=== PATIENT | male | born 1990 | race African-American/Black ===

== ENCOUNTER 2019-01-07 21:29 | Emergency (ER) | payer OTHER | END 2019-01-07 23:36 | disposition home or self-care (01) | LOC: JER 21:29 ==

== ENCOUNTER 2021-04-24 21:44 | Emergency (ER) | payer OTHER ==
[2021-04-24 22:00] VITALS: BP 127/72; PULSE 94; TEMP 98.2; BMI 38.6
== END 2021-04-24 22:50 | disposition home or self-care (01) ==
LOC: FER 21:44
DX: S63.91XA Sprain of unspecified part of right wrist and hand, initial encounter (principal); M25.512 Pain in left shoulder; Y04.8XXA Assault by other bodily force, initial encounter
CPT/HCPCS: 73030-TC-LT-FY; 73110-TC-RT-FY; 73130-TC-RT-FY; 99284-25

== ENCOUNTER 2023-06-30 11:37 | Emergency (ER) | payer OTHER ==
[2023-06-30 11:47] VITALS: BP 133/96; PULSE 95; RESP 17; TEMP 98; BMI 38.9
== END 2023-06-30 12:32 | disposition home or self-care (01) ==
LOC: FER 11:37
DX: R21 Rash and other nonspecific skin eruption (principal); B02.9 Zoster without complications
CPT/HCPCS: 99283-25